=== PATIENT | female | born 1935 | race American Indian/Alaskan Native ===

== ENCOUNTER 2017-01-26 13:28 | Inpatient (IN) | payer MEDICARE ==
[2017-01-26 15:20] VITALS: BMI 27.8
--- NOTE | 2017-01-26 16:34 | CP.PCM.PN ---
Subjective - Date & Time of Evaluation Date of Evaluation: 01/26/17 Time of Evaluation: 16:32 - Subjective Subjective: CVA left Physiatry Overall Plan of Care - Overall Plan of Care Estimated Length of Stay in Weeks: 2 Rehab Impairment: Mobility, Gait, Balance, Coordination Etiologic Diagnosis: Cerebrovascular Accident Rehab/Medical Prognosis: Good - Anticipated Interventions Physical Therapy:: Yes Occupational Therapy:: Yes Speech Therapy:: No Recreational Therapy:: Yes - Therapy Goals Bed Mobility: Independent Ambulation: Independent Functional Positional Changes:: Independent - Discharge Plan Identification of Barriers to Discharge: Home Situation Discharge Destination: Home
--- NOTE | 2017-01-26 16:36 | CP.PCM.CON ---
History of Present Illness - History of Present Illness History of Present Illness: Dr Gonzalez PMR consultation on Maryann Kessler, born 1935, who has been admitted to [facility] for acute inpatient rehabilitation following an admission at [facility] with acute left CVA with impaired function and ambulation Review of Systems - Constitutional Constitutional: absent: Anorexia, Chills - EENT Eyes: absent: Blurred Vision Ears: absent: Decreased Hearing Nose/Mouth/Throat: absent: Nasal Congestion - Cardiovascular Cardiovascular: absent: Chest Pain - Respiratory Respiratory: absent: Cough, Dyspnea - Gastrointestinal Gastrointestinal: Constipation (this is her baseline though). absent: Bloating - Musculoskeletal Musculoskeletal: absent: Arthralgias, Back Pain - Integumentary Integumentary: absent: Bleeding Lesions - Neurological Neurological: absent: Abnormal Hearing, Abnormal Movements, Dizziness - Psychiatric Psychiatric: absent: Anxiety Past Patient History - Infectious Disease Hx of Infectious Diseases: None - Past Medical History & Family History Past Medical History?: Yes - Past Social History Smoking Status: Former Smoker - CARDIAC Hx Hypertension: Yes - ENDOCRINE/METABOLIC Hx Hypothyroidism: Yes - MUSCULOSKELETAL/RHEUMATOLOGICAL Hx Falls: No - PSYCHIATRIC Hx Substance Use: No - SURGICAL HISTORY Hx Cardiac Catheterization: Yes (stents) Hx Vascular Access Device: Yes Other/Comment: Removal of R kidney - ANESTHESIA Hx Anesthesia: Yes Hx Anesthesia Reactions: No Hx Malignant Hyperthermia: No Meds Allergies/Adverse Reactions: Allergies Allergy/AdvReac Type Severity Reaction Status Date / Time FISH Allergy Verified 01/24/17 10:28 Penicillins Allergy Verified 01/24/17 10:28 Physical Exam - Constitutional Appears: Well, Non-toxic, No Acute Distress - Head Exam Head Exam: ATRAUMATIC, NORMAL INSPECTION, NORMOCEPHALIC - Eye Exam Eye Exam: EOMI, Normal appearance - ENT Exam ENT Exam: Mucous Membranes Moist - Respiratory Exam Respiratory Exam: NORMAL BREATHING PATTERN - Cardiovascular Exam Cardiovascular Exam: REGULAR RHYTHM - GI/Abdominal Exam GI & Abdominal Exam: Normal Bowel Sounds. absent: Distended - Extremities Exam Extremities exam: Positive for: normal inspection. Negative for: calf tenderness, pedal edema (there is some mild toe skin cracking between the toes on the L>R) - Back Exam Back exam: NORMAL INSPECTION - Neurological Exam Neurological exam: Alert, CN II-XII Intact, Oriented x3 - Psychiatric Exam Psychiatric exam: Normal Affect, Normal Mood Assessment & Plan - Assessment and Plan (Free Text) Assessment: 81 left CVA decreased function PT/OT to continue to help increase functional independence Team conference for d/c planning Pain: controlled Vascular: no evidence of DVT GI: constipation but baseline Patient is an excellent acute rehabilitation candidate and will have focused PT , OT and recreational therapy to help facilitate a safe and appropriate d/c plan impairment code: 01.2
[2017-01-26] MEDS: Insulin Lispro (humaLOG) 100 Units/ml Inj SC SCH (21:05)
[2017-01-27] MEDS: Levothyroxine 25 MCG TAB PO SCH (06:26)
[2017-01-27] MEDS: Insulin Lispro (humaLOG) 100 Units/ml Inj SC SCH ×4 (06:44→21:18)
[2017-01-27 13:13] LABS: BASO # 0.1 K/uL (0.0-0.2); BASO % 0.8 % (0.0-2.0); EOS # 0.1 K/uL (0.0-0.7); LYMPH # 2.4 K/uL (1.0-4.3); LYMPH % 32.7 % (20.0-40.0); MEAN CELL VOLUME 94.4 fl (81.0-99.0); MEAN CORPUSCULAR HEMOGLOBIN 31.7 pg (27.0-31.0); MEAN CORPUSCULAR HGB CONC 33.5 g/dL (33.0-37.0); MEAN PLATELET VOLUME 8.6 fl (7.2-11.7); MONO # 0.6 K/uL (0.0-0.8); MONO % 8.7 % (0.0-10.0); NEUT % 55.8 % (50.0-75.0); NRBC % 0.1 % (0.0-0.0); RBC 4.43 Mil/uL (3.80-5.20); RED CELL DISTRIBUTION WIDTH 13.9 % (11.5-14.5); WHITE BLOOD COUNT 7.2 K/uL (4.8-10.8)
[2017-01-27 13:29] LABS: ALB/GLOB RATIO 1.4 (1.0-2.1); ALBUMIN 4.2 g/dL (3.5-5.0); ALT/SGPT 31 U/L (9-52); AST/SGOT 22 U/L (14-36); BLOOD UREA NITROGEN 15 mg/dl (7-17); CALCIUM 10.2 mg/dL (8.4-10.2); GFR AFRICAN-AMERICAN > 60; GFR NON-AFRICAN AMERICAN > 60
--- NOTE | 2017-01-27 15:05 | CON ---
DATE: 01/27/2017 CHIEF COMPLAINT: Status post ataxia, status post left brachium pontis, and left lateral aspect of superior cerebral peduncle infarct. HISTORY OF PRESENT ILLNESS: A 81-year-old woman with past medical history of hypertension, hyperthyroidism, type 2 diabetes mellitus, and dyslipidemia, who came in with difficulty walking at [facility] and ataxia and underwent a workup with MRI of the brain, was found to have an acute infarction in the medial aspect of the brachium pontis and the left aspect of the left superior cerebral peduncles which is deemed secondary to diffuse atherosclerosis. She is currently at [facility] for rehabilitation and for gait imbalance and muscle strengthening. She was on aspirin 81 and Plavix 75 mg, Crestor 5 mg for stroke prevention. Her blood pressures are stable. She no longer needs meclizine. PAST MEDICAL HISTORY: History of hypertension, dyslipidemia, hyperthyroidism, hyperlipidemia, coronary artery disease and stent. ALLERGIES: ALLERGIC TO FISH AND PENICILLIN. REVIEW OF SYSTEMS: A 14-point review of system is negative except per the HPI. MEDICATIONS: Reviewed by nurse reconciliation sheet. FAMILY HISTORY: Noncontributory. PHYSICAL EXAMINATION VITAL SIGNS: Temperature 97.7, pulse rate 60, blood pressure 139/67, respiratory rate 20, oxygen saturation 99% via room air. GENERAL: The patient is sitting up in bed, in no acute distress. HEENT: Atraumatic and normocephalic. PERRLA. Extraocular muscles intact. NECK: Supple. No JVD. No adenopathy noted. LUNGS: Clear to auscultation. No adventitious sounds. HEART: S1 and S2, normal rate and rhythm. No murmurs, rubs, or gallops. ABDOMEN: Soft, nontender, nondistended. Bowel sounds present. EXTREMITIES: No clubbing, no cyanosis. Peripheral pulses 2+ felt bilaterally. NEUROLOGIC: The patient is alert, oriented to person, place, month, and year. Speech is fluent without any errors. Cranial nerves II through XII intact. Motor exam: Moves all extremities equally. No pronator drift seen. Sensory exam: Light touch and proprioception is intact. Decreased vibration to the toes. DTRs are 2+ throughout and 1 at the ankles. Coordination, [id number] slightly on the left. Otherwise, rest is intact. Gait is deferred for now. LABORATORY DATA: Blood sugar today is 113. ASSESSMENT AND PLAN: This is a 81-year-old woman with past medical history of hypertension, hyperthyroidism, type 2 diabetes mellitus, dyslipidemia, who came in for difficulty in walking and ataxia at [facility], was found to have an acute infarction in the medial aspect of brachium pontis in the left aspect of the less superior cerebral peduncle which is secondary to diffuse atherosclerosis given her risk factors. She is currently at [facility] for rehabilitation and physical therapy. At this time, I recommend; 1. Aspirin 81 mg, Plavix 75 mg, and Crestor 5 mg for stroke prevention. 2. Physical and occupational therapy for gait imbalance and muscle strengthening for ataxia from the stroke. 3. Keep the blood pressure between 140-150 given her age. 4. Continue with the current present medical management. Thank you for this consult. She is neurological stable. Jose Alberto Guallpa MD
[2017-01-28] MEDS: Levothyroxine 25 MCG TAB PO SCH (06:45)
[2017-01-28] MEDS: Insulin Lispro (humaLOG) 100 Units/ml Inj SC SCH ×2 (06:54→12:11)
--- NOTE | 2017-01-28 14:03 | CP.PCM.HP ---
History of Present Illness - History of Present Illness History of Present Illness: This is a 81 y/o female with hx of HTN DM 2 hyperlipidemia and hypothyroidism is admitted for further phys therapy. She had a thrombotic CVA cerebellar. Patient has a lot of problems with gait and balance. She was admitted to [facility] and was transferred to rehab for further therapy. Patient has been on ASA and Plavix prior to CVA. Present on Admission - Present on Admission Any Indicators Present on Admission: No History of DVT/PE: No History of Uncontrolled Diabetes: Yes Urinary Catheter: No Decubitus Ulcer Present: No Past Patient History - Infectious Disease Hx of Infectious Diseases: None - Past Medical History & Family History Past Medical History?: Yes - Past Social History Smoking Status: Former Smoker - CARDIAC Hx Cardiac Disorders: Yes - ENDOCRINE/METABOLIC Hx Hypothyroidism: Yes - MUSCULOSKELETAL/RHEUMATOLOGICAL Hx Falls: No - PSYCHIATRIC Hx Substance Use: No - SURGICAL HISTORY Hx Cardiac Catheterization: Yes (stents) Hx Vascular Access Device: Yes Other/Comment: Removal of R kidney - ANESTHESIA Hx Anesthesia: Yes Hx Anesthesia Reactions: No Hx Malignant Hyperthermia: No Meds Allergies/Adverse Reactions: Allergies Allergy/AdvReac Type Severity Reaction Status Date / Time FISH Allergy Verified 01/24/17 10:28 Penicillins Allergy Verified 01/24/17 10:28 Physical Exam - Head Exam Head Exam: NORMAL INSPECTION - Eye Exam Eye Exam: Normal appearance - ENT Exam ENT Exam: Mucous Membranes Moist - Respiratory Exam Respiratory Exam: Clear to Auscultation Bilateral - Cardiovascular Exam Cardiovascular Exam: REGULAR RHYTHM - GI/Abdominal Exam GI & Abdominal Exam: Normal Bowel Sounds - Neurological Exam Neurological exam: CN II-XII Intact - Psychiatric Exam Psychiatric exam: Normal Mood - Skin Skin Exam: Dry Results - Vital Signs Recent Vital Signs: Last Vital Signs Temp 97.7 F 01/28/17 07:35 Pulse 57 L 01/28/17 07:35 Resp 18 01/28/17 07:35 BP 125/72 01/28/17 08:47 Pulse Ox 100 01/28/17 07:35 - Labs Result Diagrams: 01/27/17 13:00 01/27/17 13:00 Labs: Laboratory Results - last 24 hr 01/27/17 01/27/17 01/27/17 13:00 16:37 21:03 POC Glucose (mg/dL) 106 172 H TSH 3rd Generation 0.04 L 01/28/17 01/28/17 06:52 10:59 POC Glucose (mg/dL) 106 205 H TSH 3rd Generation Assessment & Plan (1) CVA (cerebral vascular accident) Status: Acute (2) Ataxia Status: Acute (3) Diabetes mellitus type 2 in nonobese Status: Acute (4) Hypertension Status: Acute - Assessment and Plan (Free Text) Plan: Cont meds cont tx cont PT monitor labs Physiatry
--- NOTE | 2017-01-28 14:05 | CP.PCM.PN ---
Subjective - Date & Time of Evaluation Date of Evaluation: 01/28/17 Time of Evaluation: 14:04 - Subjective Subjective: Patient is doing a lot better. Noted to have poor balance. Accuchecks are elevated. Objective - Vital Signs/Intake and Output Vital Signs (last 24 hours): Temp Pulse Resp BP Pulse Ox 97.7 F 57 L 18 125/72 100 01/28/17 07:35 01/28/17 07:35 01/28/17 07:35 01/28/17 08:47 01/28/17 07:35 - Medications Medications: Current Medications Aspirin (Aspirin Chewable) 81 mg PO DAILY [facility] Last Admin: 01/28/17 08:46 Dose: 81 mg Atorvastatin Calcium (Lipitor) 10 mg PO HS [facility] Last Admin: 01/27/17 21:17 Dose: 10 mg Clopidogrel Bisulfate (Plavix) 75 mg PO DAILY [facility] Last Admin: 01/28/17 08:46 Dose: 75 mg Famotidine (Pepcid) 20 mg PO DAILY [facility] Last Admin: 01/28/17 08:46 Dose: 20 mg Heparin Sodium (Porcine) (Heparin) 5,000 units SC Q12 [facility] PRN Reason: Protocol Last Admin: 01/28/17 09:17 Dose: 5,000 units Levothyroxine Sodium (Synthroid) 25 mcg PO DAILY@0630 [facility] Last Admin: 01/28/17 06:45 Dose: 25 mcg Losartan Potassium (Cozaar) 100 mg PO DAILY [facility] Last Admin: 01/28/17 08:47 Dose: 100 mg Metformin HCl (Glucophage) 500 mg PO 1130,1700 [facility] Sitagliptin Phosphate (Januvia) 100 mg PO DAILY [facility] - Labs Labs: 01/27/17 13:00 01/27/17 13:00 - Head Exam Head Exam: NORMAL INSPECTION - Eye Exam Eye Exam: Normal appearance - ENT Exam ENT Exam: Mucous Membranes Moist - Cardiovascular Exam Cardiovascular Exam: REGULAR RHYTHM - GI/Abdominal Exam GI & Abdominal Exam: Normal Bowel Sounds - Neurological Exam Neurological Exam: Awake, Oriented x3 - Psychiatric Exam Psychiatric exam: Normal Mood Assessment and Plan (1) CVA (cerebral vascular accident) Status: Acute (2) Diabetes mellitus type 2 in nonobese Status: Acute (3) Hypertension Status: Acute (4) Ataxia Status: Acute - Assessment and Plan (Free Text) Plan: cont meds cont tx cont PT follow up urine
[2017-01-29] MEDS: Levothyroxine 25 MCG TAB PO SCH (05:52)
[2017-01-29] MEDS: Tmp-Smz 800 mg-160 mg DS Tab PO SCH (21:12)
[2017-01-30] MEDS: Levothyroxine 25 MCG TAB PO SCH (06:30)
[2017-01-30] MEDS: Tmp-Smz 800 mg-160 mg DS Tab PO SCH ×2 (08:17→21:31)
--- NOTE | 2017-01-30 10:19 | CP.PCM.PN ---
Subjective - Date & Time of Evaluation Date of Evaluation: 01/29/17 Time of Evaluation: 10:00 - Subjective Subjective: patient remains stable Noted better accucheck Has no headaches No dizziness. Doing well with PT. Objective - Vital Signs/Intake and Output Vital Signs (last 24 hours): Temp Pulse Resp BP Pulse Ox 97.3 F L 66 20 129/62 99 01/30/17 07:36 01/30/17 08:26 01/30/17 07:36 01/30/17 08:26 01/30/17 07:36 - Medications Medications: Current Medications Aspirin (Aspirin Chewable) 81 mg PO DAILY [facility] Last Admin: 01/30/17 08:16 Dose: 81 mg Atorvastatin Calcium (Lipitor) 10 mg PO HS [facility] Last Admin: 01/29/17 21:12 Dose: 10 mg Clopidogrel Bisulfate (Plavix) 75 mg PO DAILY [facility] Last Admin: 01/30/17 08:18 Dose: 75 mg Famotidine (Pepcid) 20 mg PO DAILY [facility] Last Admin: 01/30/17 08:18 Dose: 20 mg Levothyroxine Sodium (Synthroid) 25 mcg PO DAILY@0630 [facility] Last Admin: 01/30/17 06:30 Dose: 25 mcg Losartan Potassium (Cozaar) 100 mg PO DAILY [facility] Last Admin: 01/30/17 08:17 Dose: 100 mg Metformin HCl (Glucophage) 500 mg PO 1130,1700 [facility] Last Admin: 01/29/17 16:33 Dose: 500 mg Sitagliptin Phosphate (Januvia) 50 mg PO DAILY [facility] Trimethoprim/Sulfamethoxazole (Bactrim Ds Tab) 1 tab PO Q12 [facility] Last Admin: 01/30/17 08:17 Dose: 1 tab - Labs Labs: 01/27/17 13:00 01/27/17 13:00 - Head Exam Head Exam: NORMAL INSPECTION - Eye Exam Eye Exam: Normal appearance - ENT Exam ENT Exam: Mucous Membranes Moist - Respiratory Exam Respiratory Exam: Clear to Ausculation Bilateral - Cardiovascular Exam Cardiovascular Exam: REGULAR RHYTHM - GI/Abdominal Exam GI & Abdominal Exam: Normal Bowel Sounds - Neurological Exam Neurological Exam: Awake, Oriented x3 Assessment and Plan (1) CVA (cerebral vascular accident) Status: Acute (2) Diabetes mellitus type 2 in nonobese Status: Acute (3) Hypertension Status: Acute - Assessment and Plan (Free Text) Plan: cont meds cont tx cont meds folow up urine C and S
--- NOTE | 2017-01-30 10:35 | CP.PCM.PN ---
Subjective - Date & Time of Evaluation Date of Evaluation: 01/30/17 Time of Evaluation: 10:32 - Subjective Subjective: Patient has slight dizziness Has no chest pain or SOB afebrile Noted E coli in urine positive ESBL sens to gentamicin. Patient is allergic to PCN. Objective - Vital Signs/Intake and Output Vital Signs (last 24 hours): Temp Pulse Resp BP Pulse Ox 97.3 F L 66 20 129/62 99 01/30/17 07:36 01/30/17 08:26 01/30/17 07:36 01/30/17 08:26 01/30/17 07:36 - Medications Medications: Current Medications Aspirin (Aspirin Chewable) 81 mg PO DAILY [facility] Last Admin: 01/30/17 08:16 Dose: 81 mg Atorvastatin Calcium (Lipitor) 10 mg PO HS [facility] Last Admin: 01/29/17 21:12 Dose: 10 mg Clopidogrel Bisulfate (Plavix) 75 mg PO DAILY [facility] Last Admin: 01/30/17 08:18 Dose: 75 mg Famotidine (Pepcid) 20 mg PO DAILY [facility] Last Admin: 01/30/17 08:18 Dose: 20 mg Gentamicin Sulfate/Sodium Chloride (Gentamicin 80mg/50ml Ns) 80 mg in 50 mls @ 50 mls/hr IVPB Q8 [facility] Levothyroxine Sodium (Synthroid) 25 mcg PO DAILY@0630 [facility] Last Admin: 01/30/17 06:30 Dose: 25 mcg Losartan Potassium (Cozaar) 100 mg PO DAILY [facility] Last Admin: 01/30/17 08:17 Dose: 100 mg Metformin HCl (Glucophage) 500 mg PO 1130,1700 [facility] Last Admin: 01/29/17 16:33 Dose: 500 mg Sitagliptin Phosphate (Januvia) 50 mg PO DAILY [facility] Trimethoprim/Sulfamethoxazole (Bactrim Ds Tab) 1 tab PO Q12 [facility] Last Admin: 01/30/17 08:17 Dose: 1 tab - Labs Labs: 01/27/17 13:00 01/27/17 13:00 - Head Exam Head Exam: NORMAL INSPECTION - Eye Exam Eye Exam: Normal appearance - ENT Exam ENT Exam: Mucous Membranes Moist - Respiratory Exam Respiratory Exam: Clear to Ausculation Bilateral - Cardiovascular Exam Cardiovascular Exam: REGULAR RHYTHM - GI/Abdominal Exam GI & Abdominal Exam: Normal Bowel Sounds - Neurological Exam Neurological Exam: Awake, Oriented x3 - Psychiatric Exam Psychiatric exam: Normal Mood Assessment and Plan (1) CVA (cerebral vascular accident) Status: Acute (2) Diabetes mellitus type 2 in nonobese Status: Acute (3) Hypertension Status: Acute (4) Ataxia Status: Acute (5) Urinary tract infection Status: Acute (6) Infection due to ESBL-producing Escherichia coli Status: Acute - Assessment and Plan (Free Text) Plan: contmed start Gentamicin at 3 to 4 mg /kg in 3 div dose. cont PT. cannot give imipemem due to allergy to PCN
--- NOTE | 2017-01-30 13:27 | PSY.TMCNF ---
Nursing - Vital Signs Vital Signs (Last 8 hours): Vital Signs 01/30/17 01/30/17 01/30/17 07:36 08:17 08:26 Temperature 97.3 F L Pulse Rate 66 66 66 Respiratory 20 Rate Blood Pressure 126/58 L 129/62 129/62 O2 Sat by Pulse 99 Oximetry Pain: 0 - Medications/Other Issues Comment: Pt at moderate nutritional risk. goals:1. Consume 75-100% at mealtimes (met, continue). 2. Maintain good glycemic control:GLU:70-180mg/dl ( partially met, continue). Follow0-up due on 02/05/2017 - Bladder Management Bladder Pattern: Normal Voiding Method: Toilet, Bedpan - Bowel Management Bowel Pattern: Normal - Goals/Time Frame Comments: Pt was seen awake and alert sitting in her wheelchair in her room. Pt agreeable to participate in evaluation session and was able to identify her leisure interests such as completing word finds, watching television, and reading. 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 Pt promised, "It is time to think about myself first." Pt's mood was stable-positive and seen wearing glasses during session. Pt was going to read newspapert and complete word search during her free time. Physical Therapy - Bed Mobility Bed Mobility: Supervision, Verbal Cues, Contact Guard - Transfers Wheelchair to Mat: Verbal Cues, Minimal Assistance Sit to Stand: Verbal Cues, Minimal Assistance Comment: RW - Ambulation Level of Assistance: Verbal Cues, Minimal Assistance Assistive Devices: Rolling Walker Orthoses: n/a Comment: -level surface, RW. -VCs for sequencing and to improve foot positioning inside walker. -ataxic gait with impaired midline orientation and impaired balance reactions - Stair Negotiation Stairs: Level of Assistance: Not Tested - Standing Balance Static Stand: Contact Guard Assist Dynamic Stand: Minimal Assistance, Moderate Assistance - Pain Pain (assessed during therapy session): 0 - Insight/Carryover Insight/Carryover: Fair - Patient/Family Education Comment: -safety, therapy schedule, POC, therapy goals, midline orientation, WC mobility, use of DME, stroke recovery - Assessment/Plan Assessment: Ms. Kessler continues to demonstrate significant postural control and midline orientation deficits. These deficits impair her mobility. Pt requires min to mod A to maintain postural control and min A for safety with all mobility with use of a RW. Pt does well with visual and tactile feedback to improve postural control. PT recommends discharge to [facility] as patients deficits are likely to require increased time in order for patient to return to safe level of modified independence functioning for return to independent living. - Goals Timeframe: 7 days Goals: Ambulate 100 feet with RW with CS. Transfer with RW with CS. Bed/mat mobility with CS for supine to/from sit. Rolling with mod I - Provider Therapist: Angy Ware PT, DPT License Number: [id number] Occupational Therapy - Arousal/Attention/Orientation Patient Orientation: Person, Place, Time - ADL/IADL Self Feeding: Supervision, Set-up Help Grooming: Independent Dressing-Upper Extremity: Supervision, Set-up Help Dressing-Lower Extremity: Set-up Help, Contact Guard - Sitting Balance Static Sitting: Independent with upper extremity support Dynamic Sitting: Reaches out of base of support, Requires supervision - Transfers Wheelchair to Bed Transfers: Minimal Assistance Toilet Transfers: Moderate Assistance - Upper Extremity Status Right Upper Extremity Comment: ROM WFL MMT 4/5 Left Upper Extremity Comment: ROM WFL MMT 4/5, Impaired coordination - Pain Pain (assessed during therapy session): 0 - Insight/Carryover Insight/Carryover: Fair - Patient/Family Education Comment: -safety, therapy schedule, POC, therapy goals, midline orientation, WC mobility, use of DME, stroke recovery - Assessment/Plan Assessment: Ms. Kessler continues to demonstrate significant postural control and midline orientation deficits. These deficits impair her mobility. Pt requires min to mod A to maintain postural control and min A for safety with all mobility with use of a RW. Pt does well with visual and tactile feedback to improve postural control. PT recommends discharge to [facility] as patients deficits are likely to require increased time in order for patient to return to safe level of modified independence functioning for return to independent living. - Goals Timeframe: 7 days Goals: Ambulate 100 feet with RW with CS. Transfer with RW with CS. Bed/mat mobility with CS for supine to/from sit. Rolling with mod I - Provider Therapist: Cordelia Hood License Number: [id number] Speech Therapy - Plan Assessment: Ms. Kessler continues to demonstrate significant postural control and midline orientation deficits. These deficits impair her mobility. Pt requires min to mod A to maintain postural control and min A for safety with all mobility with use of a RW. Pt does well with visual and tactile feedback to improve postural control. PT recommends discharge to [facility] as patients deficits are likely to require increased time in order for patient to return to safe level of modified independence functioning for return to independent living. Recreational Therapy - Participation Participation: Participates in Individual and/or Group Sessions - Attendance Attendance: 3-5 times per week - Activities Leisure Activities: Reading - Socialization Level of Socialization: Initiates/interacts freely with care givers and peer - Diversional Time Diversional Time: reading, word searches - Assessment Assessment/Plan: Ms. Kessler continues to demonstrate significant postural control and midline orientation deficits. These deficits impair her mobility. Pt requires min to mod A to maintain postural control and min A for safety with all mobility with use of a RW. Pt does well with visual and tactile feedback to improve postural control. PT recommends discharge to [facility] as patients deficits are likely to require increased time in order for patient to return to safe level of modified independence functioning for return to independent living. - Provider Therapist: Natalie Spivey, MANAGER [employer] #[id number] Nutrition - Current Diet Current Diet/ Supplement/ Feedings: Moderate consistent CHO heart healthy - Appetite Percent Meal Consumed: 50-74% - Assessment/Goals/Time Frame Assessment/Goals/Time Frame: Pt at moderate nutritional risk. goals:1. Consume 75-100% at mealtimes (met, continue). 2. Maintain good glycemic control:GLU:70- 180mg/dl (partially met, continue). Follow0-up due on 02/05/2017 - Provider Provider: Mary Allen RD Case Management - Discharge Plan Discharge Plan: Home alone Rehabilitation Plan - Treatment Plan Treatment Plan: Physical Therapy, Occupational Therapy, Dietary, Patient/Family Education - Discharge Plan Estimated Date of Discharge: 02/09/17 Discharge to: Home
[2017-01-30] MEDS: Gentamicin 80mg/50ml NS 80 MG/50 ML BAG IVPB SCH ×2 (13:50→21:32)
--- NOTE | 2017-01-30 16:18 | CP.PCM.PN ---
Subjective - Date & Time of Evaluation Date of Evaluation: 01/30/17 Time of Evaluation: 16:18 - Subjective Subjective: Patient seen in the room in good spirits denies pain she notes that she can be anxious in therapies and gets a little dizzy at times I gave her some strategies to help cope with both issues and she was appreciative. continue current care Objective - Vital Signs/Intake and Output Vital Signs (last 24 hours): Temp Pulse Resp BP Pulse Ox 97.3 F L 66 20 129/62 99 01/30/17 07:36 01/30/17 08:26 01/30/17 07:36 01/30/17 08:26 01/30/17 07:36 - Medications Medications: Current Medications Aspirin (Aspirin Chewable) 81 mg PO DAILY [facility] Last Admin: 01/30/17 08:16 Dose: 81 mg Atorvastatin Calcium (Lipitor) 10 mg PO HS [facility] Last Admin: 01/29/17 21:12 Dose: 10 mg Clopidogrel Bisulfate (Plavix) 75 mg PO DAILY [facility] Last Admin: 01/30/17 08:18 Dose: 75 mg Famotidine (Pepcid) 20 mg PO DAILY [facility] Last Admin: 01/30/17 08:18 Dose: 20 mg Gentamicin Sulfate/Sodium Chloride (Gentamicin 80mg/50ml Ns) 80 mg in 50 mls @ 50 mls/hr IVPB Q8 [facility] Last Admin: 01/30/17 13:50 Dose: 50 mls/hr Levothyroxine Sodium (Synthroid) 25 mcg PO DAILY@0630 [facility] Last Admin: 01/30/17 06:30 Dose: 25 mcg Losartan Potassium (Cozaar) 100 mg PO DAILY [facility] Last Admin: 01/30/17 08:17 Dose: 100 mg Metformin HCl (Glucophage) 500 mg PO 1130,1700 [facility] Last Admin: 01/30/17 12:03 Dose: 500 mg Sitagliptin Phosphate (Januvia) 50 mg PO DAILY [facility] Trimethoprim/Sulfamethoxazole (Bactrim Ds Tab) 1 tab PO Q12 [facility] Last Admin: 01/30/17 08:17 Dose: 1 tab - Labs Labs: 01/27/17 13:00 01/27/17 13:00
[2017-01-31] MEDS: Gentamicin 80mg/50ml NS 80 MG/50 ML BAG IVPB SCH ×3 (05:12→21:54)
[2017-01-31] MEDS: Levothyroxine 25 MCG TAB PO SCH (05:55)
[2017-01-31] MEDS: Tmp-Smz 800 mg-160 mg DS Tab PO SCH ×2 (08:57→21:15)
--- NOTE | 2017-01-31 12:39 | CP.PCM.PN ---
Subjective - Date & Time of Evaluation Date of Evaluation: 01/31/17 Time of Evaluation: 12:38 - Subjective Subjective: Patient seen in room on IV ABX for UTI denies any symptoms at this point enjoying therapy and notes benefit denies pain continue current care Objective - Vital Signs/Intake and Output Vital Signs (last 24 hours): Temp Pulse Resp BP Pulse Ox 97.7 F 60 20 108/60 99 01/31/17 07:32 01/31/17 08:58 01/31/17 07:32 01/31/17 08:58 01/31/17 07:32 - Medications Medications: Current Medications Aspirin (Aspirin Chewable) 81 mg PO DAILY [facility] Last Admin: 01/31/17 08:56 Dose: 81 mg Atorvastatin Calcium (Lipitor) 10 mg PO HS [facility] Last Admin: 01/30/17 21:31 Dose: 10 mg Clopidogrel Bisulfate (Plavix) 75 mg PO DAILY [facility] Last Admin: 01/31/17 08:58 Dose: 75 mg Famotidine (Pepcid) 20 mg PO DAILY [facility] Last Admin: 01/31/17 08:58 Dose: 20 mg Gentamicin Sulfate/Sodium Chloride (Gentamicin 80mg/50ml Ns) 80 mg in 50 mls @ 50 mls/hr IVPB Q8 [facility] Last Admin: 01/31/17 05:12 Dose: 50 mls/hr Levothyroxine Sodium (Synthroid) 25 mcg PO DAILY@0630 [facility] Last Admin: 01/31/17 05:55 Dose: 25 mcg Losartan Potassium (Cozaar) 100 mg PO DAILY [facility] Last Admin: 01/31/17 08:58 Dose: Not Given Metformin HCl (Glucophage) 500 mg PO 1130,1700 [facility] Last Admin: 01/31/17 11:59 Dose: 500 mg Sitagliptin Phosphate (Januvia) 50 mg PO DAILY [facility] Last Admin: 01/31/17 08:58 Dose: 50 mg Trimethoprim/Sulfamethoxazole (Bactrim Ds Tab) 1 tab PO Q12 [facility] Last Admin: 01/31/17 08:57 Dose: 1 tab - Labs Labs: 01/27/17 13:00 01/27/17 13:00
[2017-02-01] MEDS: Gentamicin 80mg/50ml NS 80 MG/50 ML BAG IVPB SCH ×3 (05:29→21:30)
[2017-02-01] MEDS: Levothyroxine 25 MCG TAB PO SCH (05:52)
[2017-02-01] MEDS: Tmp-Smz 800 mg-160 mg DS Tab PO SCH ×2 (08:16→21:18)
--- NOTE | 2017-02-01 17:55 | CP.PCM.PN ---
Subjective - Date & Time of Evaluation Date of Evaluation: 02/01/17 Time of Evaluation: 17:54 - Subjective Subjective: Patient seen in room doing very well did great in therapy with a very nice improvement in gait now 400' with improved balance continue current care Objective - Vital Signs/Intake and Output Vital Signs (last 24 hours): Temp Pulse Resp BP Pulse Ox 96.9 F L 64 21 118/67 98 02/01/17 08:16 02/01/17 08:16 02/01/17 08:16 02/01/17 08:16 02/01/17 08:16 - Medications Medications: Current Medications Acetaminophen (Tylenol 325mg Tab) 650 mg PO Q4 PRN PRN Reason: FOR PAIN SCALE 4-10 Aspirin (Aspirin Chewable) 81 mg PO DAILY [facility] Last Admin: 02/01/17 08:16 Dose: 81 mg Atorvastatin Calcium (Lipitor) 10 mg PO HS [facility] Last Admin: 01/31/17 21:15 Dose: 10 mg Clopidogrel Bisulfate (Plavix) 75 mg PO DAILY [facility] Last Admin: 02/01/17 08:17 Dose: 75 mg Clotrimazole (Lotrimin 1% Cream) 1 applic TOP BID [facility] Last Admin: 02/01/17 16:57 Dose: 1 % Famotidine (Pepcid) 20 mg PO DAILY [facility] Last Admin: 02/01/17 08:17 Dose: 20 mg Home Med (Patient's Own Medication) 1 unit TOP TID PRN PRN Reason: Itching / Pruritus Gentamicin Sulfate/Sodium Chloride (Gentamicin 80mg/50ml Ns) 80 mg in 50 mls @ 50 mls/hr IVPB Q8 [facility] Last Admin: 02/01/17 13:57 Dose: 50 mls/hr Levothyroxine Sodium (Synthroid) 25 mcg PO DAILY@0630 [facility] Last Admin: 02/01/17 05:52 Dose: 25 mcg Losartan Potassium (Cozaar) 100 mg PO DAILY [facility] Last Admin: 02/01/17 08:16 Dose: Not Given Metformin HCl (Glucophage) 500 mg PO 1130,1700 [facility] Last Admin: 02/01/17 16:57 Dose: 500 mg Sitagliptin Phosphate (Januvia) 50 mg PO DAILY [facility] Last Admin: 02/01/17 08:17 Dose: 50 mg Trimethoprim/Sulfamethoxazole (Bactrim Ds Tab) 1 tab PO Q12 [facility] Last Admin: 02/01/17 08:16 Dose: 1 tab - Labs Labs: 01/27/17 13:00 01/27/17 13:00
[2017-02-01] MEDS: TOLNAFTATE TOP PRN ×2 (17:57→22:34)
[2017-02-02] MEDS: Gentamicin 80mg/50ml NS 80 MG/50 ML BAG IVPB SCH ×3 (05:40→21:36)
[2017-02-02] MEDS: Levothyroxine 25 MCG TAB PO SCH (05:54)
[2017-02-02] MEDS: TOLNAFTATE TOP PRN (07:34)
[2017-02-02] MEDS: Tmp-Smz 800 mg-160 mg DS Tab PO SCH ×2 (09:19→21:34)
[2017-02-02] MEDS ORDERED: Alum-Mag Hydrox-Simethicone Susp (30 mL) PO ONE (22:10)
[2017-02-03] MEDS: Gentamicin 80mg/50ml NS 80 MG/50 ML BAG IVPB SCH ×3 (06:07→21:02)
[2017-02-03] MEDS: Levothyroxine 25 MCG TAB PO SCH (06:08)
[2017-02-03] MEDS: Tmp-Smz 800 mg-160 mg DS Tab PO SCH ×2 (09:06→20:49)
[2017-02-03 14:08] LABS: SQUAMOUS EPITHIAL 1 /hpf (0-5); URINE BILIRUBIN NEGATIVE (NEGATIVE); URINE BLOOD NEGATIVE (NEGATIVE); URINE CLARITY SLIGHTY-CLOUDY (Clear); URINE COLOR YELLOW (YELLOW); URINE GLUCOSE (UA) NEG (Normal); URINE LEUKOCYTE ESTERASE NEG Leu/uL (Negative); URINE NITRATE NEGATIVE (NEGATIVE); URINE PROTEIN NEGATIVE (NEGATIVE); URINE UROBILINOGEN 0.2-1.0 mg/dL (0.2-1.0)
[2017-02-04] MEDS: Gentamicin 80mg/50ml NS 80 MG/50 ML BAG IVPB SCH (06:34)
[2017-02-04] MEDS: Levothyroxine 25 MCG TAB PO SCH (06:34)
[2017-02-04] MEDS: Tmp-Smz 800 mg-160 mg DS Tab PO SCH ×2 (09:26→20:34)
--- NOTE | 2017-02-04 10:42 | CP.PCM.PN ---
Subjective - Date & Time of Evaluation Date of Evaluation: 01/31/17 Time of Evaluation: 10:00 - Subjective Subjective: Patient has josé luis doing well with PT Noted significant problems with balance even with use of walker. Has no dizziness. Objective - Vital Signs/Intake and Output Vital Signs (last 24 hours): Temp Pulse Resp BP Pulse Ox 97.7 F 66 20 110/56 L 97 02/03/17 20:31 02/04/17 09:26 02/03/17 20:31 02/04/17 09:26 02/03/17 20:31 - Medications Medications: Current Medications Acetaminophen (Tylenol 325mg Tab) 650 mg PO Q4 PRN PRN Reason: FOR PAIN SCALE 4-10 Aspirin (Aspirin Chewable) 81 mg PO DAILY [facility] Last Admin: 02/04/17 09:26 Dose: 81 mg Atorvastatin Calcium (Lipitor) 10 mg PO HS [facility] Last Admin: 02/03/17 21:02 Dose: 10 mg Clopidogrel Bisulfate (Plavix) 75 mg PO DAILY [facility] Last Admin: 02/04/17 09:27 Dose: 75 mg Clotrimazole (Lotrimin 1% Cream) 1 applic TOP BID [facility] Last Admin: 02/04/17 09:26 Dose: 1 applic Clotrimazole (Lotrimin 1% Vaginal) 1 applic VG HS [facility] Last Admin: 02/03/17 21:10 Dose: Not Given Famotidine (Pepcid) 20 mg PO DAILY [facility] Last Admin: 02/04/17 09:27 Dose: 20 mg Home Med (Patient's Own Medication) 1 unit TOP TID PRN PRN Reason: Itching / Pruritus Last Admin: 02/02/17 07:34 Dose: 1 unit Gentamicin Sulfate/Sodium Chloride (Gentamicin 80mg/50ml Ns) 80 mg in 50 mls @ 50 mls/hr IVPB Q8 [facility] Last Admin: 02/04/17 06:34 Dose: 50 mls/hr Levothyroxine Sodium (Synthroid) 25 mcg PO DAILY@0630 [facility] Last Admin: 02/04/17 06:34 Dose: 25 mcg Losartan Potassium (Cozaar) 100 mg PO DAILY [facility] Last Admin: 02/04/17 09:26 Dose: Not Given Metformin HCl (Glucophage) 500 mg PO 1130,1700 [facility] Last Admin: 02/03/17 18:35 Dose: 500 mg Sitagliptin Phosphate (Januvia) 50 mg PO DAILY [facility] Last Admin: 02/04/17 09:26 Dose: 50 mg Trimethoprim/Sulfamethoxazole (Bactrim Ds Tab) 1 tab PO Q12 [facility] Stop: 02/04/17 21:00 Last Admin: 02/04/17 09:26 Dose: 1 tab - Labs Labs: 01/27/17 13:00 01/27/17 13:00 - Head Exam Head Exam: NORMAL INSPECTION - Eye Exam Eye Exam: Normal appearance - ENT Exam ENT Exam: Mucous Membranes Moist - Respiratory Exam Respiratory Exam: Clear to Ausculation Bilateral - Cardiovascular Exam Cardiovascular Exam: REGULAR RHYTHM - GI/Abdominal Exam GI & Abdominal Exam: Normal Bowel Sounds Assessment and Plan (1) CVA (cerebral vascular accident) Status: Acute (2) Diabetes mellitus type 2 in nonobese Status: Acute (3) Hypertension Status: Acute (4) Ataxia Status: Acute (5) Gait disturbance, post-stroke Status: Acute (6) Hyperlipidemia Status: Acute (7) Hypothyroidism Status: Acute - Assessment and Plan (Free Text) Plan: Cont meds Cont tx Cont pT contmeds.
--- NOTE | 2017-02-04 10:45 | CP.PCM.PN ---
Subjective - Date & Time of Evaluation Date of Evaluation: 02/01/17 Time of Evaluation: 09:30 - Subjective Subjective: Patient is stable Has no chest pain or SOB Afebrile Objective - Vital Signs/Intake and Output Vital Signs (last 24 hours): Temp Pulse Resp BP Pulse Ox 97.7 F 66 20 110/56 L 97 02/03/17 20:31 02/04/17 09:26 02/03/17 20:31 02/04/17 09:26 02/03/17 20:31 - Medications Medications: Current Medications Acetaminophen (Tylenol 325mg Tab) 650 mg PO Q4 PRN PRN Reason: FOR PAIN SCALE 4-10 Aspirin (Aspirin Chewable) 81 mg PO DAILY [facility] Last Admin: 02/04/17 09:26 Dose: 81 mg Atorvastatin Calcium (Lipitor) 10 mg PO HS [facility] Last Admin: 02/03/17 21:02 Dose: 10 mg Clopidogrel Bisulfate (Plavix) 75 mg PO DAILY [facility] Last Admin: 02/04/17 09:27 Dose: 75 mg Clotrimazole (Lotrimin 1% Cream) 1 applic TOP BID [facility] Last Admin: 02/04/17 09:26 Dose: 1 applic Clotrimazole (Lotrimin 1% Vaginal) 1 applic VG HS [facility] Last Admin: 02/03/17 21:10 Dose: Not Given Famotidine (Pepcid) 20 mg PO DAILY [facility] Last Admin: 02/04/17 09:27 Dose: 20 mg Home Med (Patient's Own Medication) 1 unit TOP TID PRN PRN Reason: Itching / Pruritus Last Admin: 02/02/17 07:34 Dose: 1 unit Gentamicin Sulfate/Sodium Chloride (Gentamicin 80mg/50ml Ns) 80 mg in 50 mls @ 50 mls/hr IVPB Q8 [facility] Last Admin: 02/04/17 06:34 Dose: 50 mls/hr Levothyroxine Sodium (Synthroid) 25 mcg PO DAILY@0630 [facility] Last Admin: 02/04/17 06:34 Dose: 25 mcg Losartan Potassium (Cozaar) 100 mg PO DAILY [facility] Last Admin: 02/04/17 09:26 Dose: Not Given Metformin HCl (Glucophage) 500 mg PO 1130,1700 [facility] Last Admin: 02/03/17 18:35 Dose: 500 mg Sitagliptin Phosphate (Januvia) 50 mg PO DAILY [facility] Last Admin: 02/04/17 09:26 Dose: 50 mg Trimethoprim/Sulfamethoxazole (Bactrim Ds Tab) 1 tab PO Q12 [facility] Stop: 02/04/17 21:00 Last Admin: 02/04/17 09:26 Dose: 1 tab - Labs Labs: 01/27/17 13:00 01/27/17 13:00 - Head Exam Head Exam: NORMAL INSPECTION - Eye Exam Eye Exam: Normal appearance - ENT Exam ENT Exam: Mucous Membranes Moist - Respiratory Exam Respiratory Exam: Clear to Ausculation Bilateral - Cardiovascular Exam Cardiovascular Exam: REGULAR RHYTHM - GI/Abdominal Exam GI & Abdominal Exam: Normal Bowel Sounds - Neurological Exam Neurological Exam: Awake, Oriented x3 Assessment and Plan (1) CVA (cerebral vascular accident) Status: Acute (2) Diabetes mellitus type 2 in nonobese Status: Acute (3) Hypertension Status: Acute (4) Ataxia Status: Acute (5) Gait disturbance, post-stroke Status: Acute (6) Hyperlipidemia Status: Acute (7) Hypothyroidism Status: Acute - Assessment and Plan (Free Text) Plan: Cnt meds Cont tx Cont PT
--- NOTE | 2017-02-04 10:46 | CP.PCM.PN ---
Subjective - Date & Time of Evaluation Date of Evaluation: 02/02/17 Time of Evaluation: 09:45 - Subjective Subjective: Patient is dong well with PT Still has a lot of balance problems and gait dysfunction Noted good glucose control. Has no fever no chest pain or SOB. Objective - Vital Signs/Intake and Output Vital Signs (last 24 hours): Temp Pulse Resp BP Pulse Ox 97.7 F 66 20 110/56 L 97 02/03/17 20:31 02/04/17 09:26 02/03/17 20:31 02/04/17 09:26 02/03/17 20:31 - Medications Medications: Current Medications Acetaminophen (Tylenol 325mg Tab) 650 mg PO Q4 PRN PRN Reason: FOR PAIN SCALE 4-10 Aspirin (Aspirin Chewable) 81 mg PO DAILY [facility] Last Admin: 02/04/17 09:26 Dose: 81 mg Atorvastatin Calcium (Lipitor) 10 mg PO HS [facility] Last Admin: 02/03/17 21:02 Dose: 10 mg Clopidogrel Bisulfate (Plavix) 75 mg PO DAILY [facility] Last Admin: 02/04/17 09:27 Dose: 75 mg Clotrimazole (Lotrimin 1% Cream) 1 applic TOP BID [facility] Last Admin: 02/04/17 09:26 Dose: 1 applic Clotrimazole (Lotrimin 1% Vaginal) 1 applic VG HS [facility] Last Admin: 02/03/17 21:10 Dose: Not Given Famotidine (Pepcid) 20 mg PO DAILY [facility] Last Admin: 02/04/17 09:27 Dose: 20 mg Home Med (Patient's Own Medication) 1 unit TOP TID PRN PRN Reason: Itching / Pruritus Last Admin: 02/02/17 07:34 Dose: 1 unit Gentamicin Sulfate/Sodium Chloride (Gentamicin 80mg/50ml Ns) 80 mg in 50 mls @ 50 mls/hr IVPB Q8 [facility] Last Admin: 02/04/17 06:34 Dose: 50 mls/hr Levothyroxine Sodium (Synthroid) 25 mcg PO DAILY@0630 [facility] Last Admin: 02/04/17 06:34 Dose: 25 mcg Losartan Potassium (Cozaar) 100 mg PO DAILY [facility] Last Admin: 02/04/17 09:26 Dose: Not Given Metformin HCl (Glucophage) 500 mg PO 1130,1700 [facility] Last Admin: 02/03/17 18:35 Dose: 500 mg Sitagliptin Phosphate (Januvia) 50 mg PO DAILY [facility] Last Admin: 02/04/17 09:26 Dose: 50 mg Trimethoprim/Sulfamethoxazole (Bactrim Ds Tab) 1 tab PO Q12 [facility] Stop: 02/04/17 21:00 Last Admin: 02/04/17 09:26 Dose: 1 tab - Labs Labs: 01/27/17 13:00 01/27/17 13:00 - Head Exam Head Exam: NORMAL INSPECTION - Eye Exam Eye Exam: Normal appearance - ENT Exam ENT Exam: Mucous Membranes Moist - Cardiovascular Exam Cardiovascular Exam: REGULAR RHYTHM - GI/Abdominal Exam GI & Abdominal Exam: Normal Bowel Sounds Assessment and Plan (1) CVA (cerebral vascular accident) Status: Acute (2) Diabetes mellitus type 2 in nonobese Status: Acute (3) Hypertension Status: Acute (4) Ataxia Status: Acute (5) Gait disturbance, post-stroke Status: Acute (6) Hyperlipidemia Status: Acute (7) Hypothyroidism Status: Acute - Assessment and Plan (Free Text) Plan: cont meds Cont tx Cont PT.
--- NOTE | 2017-02-04 10:48 | CP.PCM.PN ---
Subjective - Date & Time of Evaluation Date of Evaluation: 02/03/17 Time of Evaluation: 10:00 - Subjective Subjective: Patient is doing well Has no chest pain or SOB Objective - Vital Signs/Intake and Output Vital Signs (last 24 hours): Temp Pulse Resp BP Pulse Ox 97.7 F 66 20 110/56 L 97 02/03/17 20:31 02/04/17 09:26 02/03/17 20:31 02/04/17 09:26 02/03/17 20:31 - Medications Medications: Current Medications Acetaminophen (Tylenol 325mg Tab) 650 mg PO Q4 PRN PRN Reason: FOR PAIN SCALE 4-10 Aspirin (Aspirin Chewable) 81 mg PO DAILY [facility] Last Admin: 02/04/17 09:26 Dose: 81 mg Atorvastatin Calcium (Lipitor) 10 mg PO HS [facility] Last Admin: 02/03/17 21:02 Dose: 10 mg Clopidogrel Bisulfate (Plavix) 75 mg PO DAILY [facility] Last Admin: 02/04/17 09:27 Dose: 75 mg Clotrimazole (Lotrimin 1% Cream) 1 applic TOP BID [facility] Last Admin: 02/04/17 09:26 Dose: 1 applic Clotrimazole (Lotrimin 1% Vaginal) 1 applic VG HS [facility] Last Admin: 02/03/17 21:10 Dose: Not Given Famotidine (Pepcid) 20 mg PO DAILY [facility] Last Admin: 02/04/17 09:27 Dose: 20 mg Home Med (Patient's Own Medication) 1 unit TOP TID PRN PRN Reason: Itching / Pruritus Last Admin: 02/02/17 07:34 Dose: 1 unit Gentamicin Sulfate/Sodium Chloride (Gentamicin 80mg/50ml Ns) 80 mg in 50 mls @ 50 mls/hr IVPB Q8 [facility] Last Admin: 02/04/17 06:34 Dose: 50 mls/hr Levothyroxine Sodium (Synthroid) 25 mcg PO DAILY@0630 [facility] Last Admin: 02/04/17 06:34 Dose: 25 mcg Losartan Potassium (Cozaar) 100 mg PO DAILY [facility] Last Admin: 02/04/17 09:26 Dose: Not Given Metformin HCl (Glucophage) 500 mg PO 1130,1700 [facility] Last Admin: 02/03/17 18:35 Dose: 500 mg Sitagliptin Phosphate (Januvia) 50 mg PO DAILY [facility] Last Admin: 02/04/17 09:26 Dose: 50 mg Trimethoprim/Sulfamethoxazole (Bactrim Ds Tab) 1 tab PO Q12 [facility] Stop: 02/04/17 21:00 Last Admin: 02/04/17 09:26 Dose: 1 tab - Labs Labs: 01/27/17 13:00 01/27/17 13:00 - Head Exam Head Exam: NORMAL INSPECTION - Eye Exam Eye Exam: Normal appearance - ENT Exam ENT Exam: Mucous Membranes Moist - Cardiovascular Exam Cardiovascular Exam: REGULAR RHYTHM - GI/Abdominal Exam GI & Abdominal Exam: Normal Bowel Sounds - Neurological Exam Neurological Exam: CN II-XII Intact - Psychiatric Exam Psychiatric exam: Normal Mood Assessment and Plan (1) CVA (cerebral vascular accident) Status: Acute (2) Diabetes mellitus type 2 in nonobese Status: Acute (3) Hypertension Status: Acute (4) Ataxia Status: Acute (5) Gait disturbance, post-stroke Status: Acute (6) Hyperlipidemia Status: Acute (7) Hypothyroidism Status: Acute - Assessment and Plan (Free Text) Plan: Cont meds Cot tx Cont PT
--- NOTE | 2017-02-04 10:48 | CP.PCM.PN ---
Subjective - Date & Time of Evaluation Date of Evaluation: 02/04/17 Time of Evaluation: 10:48 - Subjective Subjective: Patient remains stable. Objective - Vital Signs/Intake and Output Vital Signs (last 24 hours): Temp Pulse Resp BP Pulse Ox 97.7 F 66 20 110/56 L 97 02/03/17 20:31 02/04/17 09:26 02/03/17 20:31 02/04/17 09:26 02/03/17 20:31 - Medications Medications: Current Medications Acetaminophen (Tylenol 325mg Tab) 650 mg PO Q4 PRN PRN Reason: FOR PAIN SCALE 4-10 Aspirin (Aspirin Chewable) 81 mg PO DAILY [facility] Last Admin: 02/04/17 09:26 Dose: 81 mg Atorvastatin Calcium (Lipitor) 10 mg PO HS [facility] Last Admin: 02/03/17 21:02 Dose: 10 mg Clopidogrel Bisulfate (Plavix) 75 mg PO DAILY [facility] Last Admin: 02/04/17 09:27 Dose: 75 mg Clotrimazole (Lotrimin 1% Cream) 1 applic TOP BID [facility] Last Admin: 02/04/17 09:26 Dose: 1 applic Clotrimazole (Lotrimin 1% Vaginal) 1 applic VG HS [facility] Last Admin: 02/03/17 21:10 Dose: Not Given Famotidine (Pepcid) 20 mg PO DAILY [facility] Last Admin: 02/04/17 09:27 Dose: 20 mg Home Med (Patient's Own Medication) 1 unit TOP TID PRN PRN Reason: Itching / Pruritus Last Admin: 02/02/17 07:34 Dose: 1 unit Gentamicin Sulfate/Sodium Chloride (Gentamicin 80mg/50ml Ns) 80 mg in 50 mls @ 50 mls/hr IVPB Q8 [facility] Last Admin: 02/04/17 06:34 Dose: 50 mls/hr Levothyroxine Sodium (Synthroid) 25 mcg PO DAILY@0630 [facility] Last Admin: 02/04/17 06:34 Dose: 25 mcg Losartan Potassium (Cozaar) 100 mg PO DAILY [facility] Last Admin: 02/04/17 09:26 Dose: Not Given Metformin HCl (Glucophage) 500 mg PO 1130,1700 [facility] Last Admin: 02/03/17 18:35 Dose: 500 mg Sitagliptin Phosphate (Januvia) 50 mg PO DAILY [facility] Last Admin: 02/04/17 09:26 Dose: 50 mg Trimethoprim/Sulfamethoxazole (Bactrim Ds Tab) 1 tab PO Q12 [facility] Stop: 02/04/17 21:00 Last Admin: 02/04/17 09:26 Dose: 1 tab - Labs Labs: 01/27/17 13:00 01/27/17 13:00 Assessment and Plan (1) CVA (cerebral vascular accident) Status: Acute (2) Diabetes mellitus type 2 in nonobese Status: Acute (3) Hypertension Status: Acute (4) Ataxia Status: Acute (5) Gait disturbance, post-stroke Status: Acute (6) Hyperlipidemia Status: Acute (7) Hypothyroidism Status: Acute
--- NOTE | 2017-02-04 15:11 | CP.PCM.PN ---
Subjective - Date & Time of Evaluation Date of Evaluation: 02/03/17 Time of Evaluation: 11:00 - Subjective Subjective: No acute complaints at present Objective - Vital Signs/Intake and Output Vital Signs (last 24 hours): Temp Pulse Resp BP Pulse Ox 97.6 F 66 19 110/56 L 96 02/04/17 10:00 02/04/17 10:00 02/04/17 10:00 02/04/17 10:00 02/04/17 10:00 - Medications Medications: Current Medications Acetaminophen (Tylenol 325mg Tab) 650 mg PO Q4 PRN PRN Reason: FOR PAIN SCALE 4-10 Aspirin (Aspirin Chewable) 81 mg PO DAILY [facility] Last Admin: 02/04/17 09:26 Dose: 81 mg Atorvastatin Calcium (Lipitor) 10 mg PO HS [facility] Last Admin: 02/03/17 21:02 Dose: 10 mg Clopidogrel Bisulfate (Plavix) 75 mg PO DAILY [facility] Last Admin: 02/04/17 09:27 Dose: 75 mg Clotrimazole (Lotrimin 1% Cream) 1 applic TOP BID [facility] Last Admin: 02/04/17 09:26 Dose: 1 applic Clotrimazole (Lotrimin 1% Vaginal) 1 applic VG HS [facility] Last Admin: 02/03/17 21:10 Dose: Not Given Famotidine (Pepcid) 20 mg PO DAILY [facility] Last Admin: 02/04/17 09:27 Dose: 20 mg Home Med (Patient's Own Medication) 1 unit TOP TID PRN PRN Reason: Itching / Pruritus Last Admin: 02/02/17 07:34 Dose: 1 unit Levothyroxine Sodium (Synthroid) 25 mcg PO DAILY@0630 [facility] Last Admin: 02/04/17 06:34 Dose: 25 mcg Losartan Potassium (Cozaar) 100 mg PO DAILY [facility] Last Admin: 02/04/17 09:26 Dose: Not Given Metformin HCl (Glucophage) 500 mg PO 1130,1700 [facility] Last Admin: 02/04/17 12:49 Dose: 500 mg Sitagliptin Phosphate (Januvia) 50 mg PO DAILY [facility] Last Admin: 02/04/17 09:26 Dose: 50 mg Trimethoprim/Sulfamethoxazole (Bactrim Ds Tab) 1 tab PO Q12 [facility] Stop: 02/04/17 21:00 Last Admin: 02/04/17 09:26 Dose: 1 tab - Labs Labs: 01/27/17 13:00 01/27/17 13:00 - Head Exam Head Exam: ATRAUMATIC, NORMAL INSPECTION, NORMOCEPHALIC - Eye Exam Eye Exam: EOMI, Normal appearance Pupil Exam: NORMAL ACCOMODATION - ENT Exam ENT Exam: Mucous Membranes Moist - Neck Exam Neck Exam: Normal Inspection - Respiratory Exam Respiratory Exam: NORMAL BREATHING PATTERN - Cardiovascular Exam Cardiovascular Exam: REGULAR RHYTHM - GI/Abdominal Exam GI & Abdominal Exam: Normal Bowel Sounds - Rectal Exam Rectal Exam: NORMAL INSPECTION - Exam External exam: NORMAL EXTERNAL EXAM - Back Exam Back Exam: NORMAL INSPECTION - Neurological Exam Neurological Exam: Alert, Awake Additional comments: weakness generalized - Psychiatric Exam Psychiatric exam: Normal Affect, Normal Mood - Skin Skin Exam: Dry, Normal Color Assessment and Plan (1) Diabetes mellitus type 2 in nonobese Status: Acute (2) Gait disturbance, post-stroke Assessment & Plan: plan to continue with physical, occupational, rec therapy covering for Dr Gonzalez Status: Acute (3) Hyperlipidemia Status: Acute (4) Hypertension Status: Acute (5) Hypothyroidism Status: Acute (6) Infection due to ESBL-producing Escherichia coli Status: Acute (7) Urinary tract infection Status: Acute (8) Ataxia Status: Acute
[2017-02-05] MEDS: Levothyroxine 25 MCG TAB PO SCH (06:17)
[2017-02-06] MEDS: Levothyroxine 25 MCG TAB PO SCH (05:54)
--- NOTE | 2017-02-06 13:19 | PSY.TMCNF ---
Nursing - Vital Signs Vital Signs (Last 8 hours): Vital Signs 02/06/17 02/06/17 02/06/17 09:00 09:13 10:00 Temperature 96.9 F L 96.9 F L Pulse Rate 84 84 84 Respiratory 21 21 Rate Blood Pressure 117/69 117/69 117/69 O2 Sat by Pulse 100 Oximetry Pain: 0 - Precautions: Precautions: Fall Prevention - Medications/Other Issues Comment: Safety - Consults Comment: Dr. Gonzalez - Toileting Toileting: Minimal Assistance - Bladder Management Bladder Pattern: Normal Voiding Method: Toilet - Bowel Management Bowel Pattern: Normal Bowel Management: Minimal Assistance - Transfers Transfers: Minimal Assistance - ADL's ADL's: Minimal Assistance - Pain Management Comments: Denies pain - Patient/Family Teaching Comments: safety - Goals/Time Frame Comments: per IPOC Physical Therapy - Bed Mobility Bed Mobility: Supervision, Verbal Cues - Transfers Wheelchair to Mat: Supervision, Verbal Cues, Contact Guard, Minimal Assistance Sit to Stand: Supervision, Verbal Cues, Contact Guard, Minimal Assistance Comment: RW - Ambulation Distance (ft.): 200 Assistive Devices: Rolling Walker Orthoses: 2# cuff weight, L side of RW for weighted feedback Comment: -patient with 200 feet with 2# L sided weighted walker. -CG with short periods of CG and instances of min A due to impaired trunk control and impaired fluidity with gait. -VCs to try and maintain static speed. -improved endurance noted with increased distance - Stair Negotiation Stairs: Level of Assistance: Minimal Assistance Number of Stairs: 4 Stairs: Assistive Devices: Left Handrail, Right Handrail Comment: 4 6inch steps with step to pattern with B rails with min A - Standing Balance Static Stand: Contact Guard Assist Dynamic Stand: Minimal Assistance, Moderate Assistance - Pain Comment: Pt with intermittent complaints of muscle cramping at neck - Insight/Carryover Insight/Carryover: Good - Patient/Family Education Comment: -safety, therapy schedule, therapy goals, midline orientation, pain management, use of call reyes, wheelchair mobility, mobility with walker, use of visual feedback, postural control, energy conservation - Assessment/Plan Assessment: Ms. Kessler continues to make slow steady progress towards goals. Patient continues to require mirror feedback, weighted/tactile feedback and cues to improve safety with and quality of motor patterns during functional mobility. Pt continues with retro-pulsion upon standing up and requires intermittent assistance from CS to min A fore safety with all mobility. Pt continues to lack balance reactions in standing requiring external assistance to maintain balance. PT continues to recommend skilled therapy services to maximize safety and independence with all mobility s/p CVA. Due to lack of support at home, PT recommends discharge to [facility] as this would enable patient to continue progressing towards her goals and prior level of functioning to maximize safety and reduce burden of care prior to community discharge. - Goals Timeframe: 7 days Goals: ambulate 200 feet with RW with CG without weighted walker. CS with RW. I with rolling. mod I with supine to/from sit - Provider Therapist: Angy Ware, PT, DPT License Number: [id number] Occupational Therapy - Arousal/Attention/Orientation Patient Orientation: Person, Place, Time, Appropriate to Age, Appropriate to Situation - ADL/IADL Self Feeding: Modified Independent Grooming: Modified Independent Bathing-Upper Extremity: Supervision, Verbal Cues, Set-up Help Bathing-Lower Extremity: Verbal Cues, Set-up Help, Minimal Assistance Dressing-Upper Extremity: Supervision, Verbal Cues, Set-up Help Dressing-Lower Extremity: Verbal Cues, Set-up Help, Contact Guard Comment: grooming-from seated position - Sitting Balance Static Sitting: Independent with upper extremity support Dynamic Sitting: Reaches out of base of support, Requires supervision - Transfers Wheelchair to Bed Transfers: Supervision, Verbal Cues, Set-up Help Toilet Transfers: Verbal Cues, Set-up Help, Minimal Assistance Tub Transfers: Verbal Cues, Set-up Help, Minimal Assistance - Wheelchair Management Level of Assistance: Verbal Cues, Set-up Help Distance (ft.): 150 - Upper Extremity Status Right Upper Extremity Comment: ROM WFL, MMT Grossly 4/5 Left Upper Extremity Comment: ROM WFL, MMT Grossly 4/5. Impaired gross and fine motor coordination - Pain Comment: Pt with intermittent complaints of muscle cramping at neck - Insight/Carryover Insight/Carryover: Good - Patient/Family Education Comment: -safety, therapy schedule, therapy goals, midline orientation, pain management, use of call reyes, wheelchair mobility, mobility with walker, use of visual feedback, postural control, energy conservation - Assessment/Plan Assessment: Ms. Kessler continues to make slow steady progress towards goals. Patient continues to require mirror feedback, weighted/tactile feedback and cues to improve safety with and quality of motor patterns during functional mobility. Pt continues with retro-pulsion upon standing up and requires intermittent assistance from CS to min A fore safety with all mobility. Pt continues to lack balance reactions in standing requiring external assistance to maintain balance. PT continues to recommend skilled therapy services to maximize safety and independence with all mobility s/p CVA. Due to lack of support at home, PT recommends discharge to [facility] as this would enable patient to continue progressing towards her goals and prior level of functioning to maximize safety and reduce burden of care prior to community discharge. - Goals Timeframe: 7 days Goals: ambulate 200 feet with RW with CG without weighted walker. CS with RW. I with rolling. mod I with supine to/from sit - Provider Therapist: Cordelia Hood License Number: [id number] Speech Therapy - Plan Assessment: Ms. Kessler continues to make slow steady progress towards goals. Patient continues to require mirror feedback, weighted/tactile feedback and cues to improve safety with and quality of motor patterns during functional mobility. Pt continues with retro-pulsion upon standing up and requires intermittent assistance from CS to min A fore safety with all mobility. Pt continues to lack balance reactions in standing requiring external assistance to maintain balance. PT continues to recommend skilled therapy services to maximize safety and independence with all mobility s/p CVA. Due to lack of support at home, PT recommends discharge to [facility] as this would enable patient to continue progressing towards her goals and prior level of functioning to maximize safety and reduce burden of care prior to community discharge. Recreational Therapy - Participation Participation: Participates in Individual and/or Group Sessions - Attendance Attendance: 5-6 times per week - Activities Leisure Activities: Cards and Games - Socialization Level of Socialization: Initiates/interacts freely with care givers and peer - Diversional Time Diversional Time: reading, word searches - Assessment Assessment/Plan: Ms. Kessler continues to make slow steady progress towards goals. Patient continues to require mirror feedback, weighted/tactile feedback and cues to improve safety with and quality of motor patterns during functional mobility. Pt continues with retro-pulsion upon standing up and requires intermittent assistance from CS to min A fore safety with all mobility. Pt continues to lack balance reactions in standing requiring external assistance to maintain balance. PT continues to recommend skilled therapy services to maximize safety and independence with all mobility s/p CVA. Due to lack of support at home, PT recommends discharge to [facility] as this would enable patient to continue progressing towards her goals and prior level of functioning to maximize safety and reduce burden of care prior to community discharge. - Provider Therapist: Natalie Spivey, DIRECTOR OF EXTENSION WORK #[id number] Nutrition - Current Diet Current Diet/ Supplement/ Feedings: Moderate consistent CHO heart healthy - Appetite Percent Meal Consumed: 50-74% - Comments Comments: safety - Assessment/Goals/Time Frame Assessment/Goals/Time Frame: Safety - Provider Provider: Mary Allen RD Case Management - Psychosocial Assessment Support Systems: Marco Kessler (sam)- [phone], Psychological Interventions/Needs: Patient is alert and oriented x3 and able to verbalize needs. Discharge Concerns: Patient demonstrates impairments in midline control and motor control to the L side. Patient also with retropulsion during ambulation. Patient/Family Meeting: CM met with patient and rehab team Intervention/Goal/Outcome:: 1. Plan: [facility]- CM to provide list to patient as patient with limited support during the day. 2. Tentative discharge date: 2016 - Discharge Plan Discharge Plan: Subacute care - Provider Provider: MARCELO Lynn, [employer] License Number: [id number] Rehabilitation Plan - Treatment Plan Treatment Plan: Physical Therapy, Occupational Therapy, Dietary, Patient/Family Education - Discharge Plan Discharge to: Subacute
--- NOTE | 2017-02-06 17:06 | CP.PCM.PN ---
Subjective - Date & Time of Evaluation Date of Evaluation: 02/06/17 Time of Evaluation: 17:05 - Subjective Subjective: Patient seen in room denies pain I went over in great detail as to why she is not going to be able to d/c home and need [facility] she seemed to understand making good gains, but will not be safe for d/c unless has 24 hour supervision Objective - Vital Signs/Intake and Output Vital Signs (last 24 hours): Temp Pulse Resp BP Pulse Ox 96.9 F L 84 21 117/69 100 02/06/17 10:00 02/06/17 10:00 02/06/17 10:00 02/06/17 10:00 02/06/17 10:00 - Medications Medications: Current Medications Acetaminophen (Tylenol 325mg Tab) 650 mg PO Q4 PRN PRN Reason: FOR PAIN SCALE 4-10 Aspirin (Aspirin Chewable) 81 mg PO DAILY [facility] Last Admin: 02/06/17 09:12 Dose: 81 mg Atorvastatin Calcium (Lipitor) 10 mg PO HS [facility] Last Admin: 02/05/17 22:15 Dose: 10 mg Clopidogrel Bisulfate (Plavix) 75 mg PO DAILY [facility] Last Admin: 02/06/17 09:14 Dose: 75 mg Clotrimazole (Lotrimin 1% Cream) 1 applic TOP BID [facility] Last Admin: 02/06/17 09:13 Dose: 1 applic Clotrimazole (Lotrimin 1% Vaginal) 1 applic VG HS [facility] Last Admin: 02/05/17 22:16 Dose: Not Given Cyclobenzaprine HCl (Flexeril) 5 mg PO Q8 PRN PRN Reason: Muscle spasm Diazepam (Valium) 5 mg PO 1700 [facility] Famotidine (Pepcid) 20 mg PO DAILY [facility] Last Admin: 02/06/17 09:14 Dose: 20 mg Home Med (Patient's Own Medication) 1 unit TOP TID PRN PRN Reason: Itching / Pruritus Last Admin: 02/02/17 07:34 Dose: 1 unit Levothyroxine Sodium (Synthroid) 25 mcg PO DAILY@0630 [facility] Last Admin: 02/06/17 05:54 Dose: 25 mcg Losartan Potassium (Cozaar) 100 mg PO DAILY [facility] Last Admin: 02/06/17 09:13 Dose: Not Given Metformin HCl (Glucophage) 500 mg PO 1130,1700 [facility] Last Admin: 02/06/17 13:05 Dose: 500 mg Sitagliptin Phosphate (Januvia) 50 mg PO DAILY [facility] Last Admin: 02/06/17 09:14 Dose: 50 mg - Labs Labs: 01/27/17 13:00 01/27/17 13:00
[2017-02-06 20:10] VITALS: RESP 20
[2017-02-07] MEDS: Levothyroxine 25 MCG TAB PO SCH (07:03)
--- NOTE | 2017-02-07 19:13 | CP.PCM.PN ---
Subjective - Date & Time of Evaluation Date of Evaluation: 02/07/17 Time of Evaluation: 19:12 - Subjective Subjective: Patient seen in room with friend present doing ok ambulated in therapies, but had impaired recall of pattern set for d/c to [facility] 02/09/17, but has not decided on which facility at this point I did mention that I would be happy to see her if she goes to [place] continue current care Objective - Vital Signs/Intake and Output Vital Signs (last 24 hours): Temp Pulse Resp BP Pulse Ox 97.6 F 78 20 113/78 96 02/07/17 09:54 02/07/17 09:54 02/07/17 09:54 02/07/17 09:54 02/07/17 09:54 - Medications Medications: Current Medications Acetaminophen (Tylenol 325mg Tab) 650 mg PO Q4 PRN PRN Reason: FOR PAIN SCALE 4-10 Aspirin (Aspirin Chewable) 81 mg PO DAILY [facility] Last Admin: 02/07/17 08:55 Dose: 81 mg Atorvastatin Calcium (Lipitor) 10 mg PO [facility] Last Admin: 02/06/17 21:02 Dose: 10 mg Clopidogrel Bisulfate (Plavix) 75 mg PO DAILY [facility] Last Admin: 02/07/17 08:56 Dose: 75 mg Clotrimazole (Lotrimin 1% Cream) 1 applic TOP BID [facility] Last Admin: 02/07/17 17:00 Dose: 1 applic Clotrimazole (Lotrimin 1% Vaginal) 1 applic VG HS [facility] Last Admin: 02/06/17 21:03 Dose: Not Given Cyclobenzaprine HCl (Flexeril) 5 mg PO Q8 PRN PRN Reason: Muscle spasm Last Admin: 02/06/17 20:46 Dose: 5 mg Famotidine (Pepcid) 20 mg PO DAILY [facility] Last Admin: 02/07/17 08:55 Dose: 20 mg Home Med (Patient's Own Medication) 1 unit TOP TID PRN PRN Reason: Itching / Pruritus Last Admin: 02/02/17 07:34 Dose: 1 unit Levothyroxine Sodium (Synthroid) 25 mcg PO DAILY@0630 [facility] Last Admin: 02/07/17 07:03 Dose: 25 mcg Losartan Potassium (Cozaar) 100 mg PO DAILY [facility] Last Admin: 02/07/17 08:55 Dose: Not Given Metformin HCl (Glucophage) 500 mg PO 1130,1700 [facility] Last Admin: 02/07/17 16:59 Dose: 500 mg Sitagliptin Phosphate (Januvia) 50 mg PO DAILY [facility] Last Admin: 02/07/17 08:57 Dose: 50 mg - Labs Labs: 01/27/17 13:00 01/27/17 13:00
[2017-02-08] MEDS: Levothyroxine 25 MCG TAB PO SCH (07:11)
[2017-02-08 20:18] VITALS: TEMP 87.6; O2SAT 98
[2017-02-09] MEDS: Levothyroxine 25 MCG TAB PO SCH (07:04)
[2017-02-09 09:07] VITALS: BP 111/71; PULSE 67
--- NOTE | 2017-02-09 09:53 | CP.PCM.PN ---
Subjective - Date & Time of Evaluation Date of Evaluation: 02/05/17 Time of Evaluation: 09:30 - Subjective Subjective: Still with a lot of problems with balance. Walks with walker but with assistance Has no chest pain or SOB Has some pain on the right side of the neck mostly trapezius and sternocleidomastoid muscles. Objective - Vital Signs/Intake and Output Vital Signs (last 24 hours): Temp Pulse Resp BP Pulse Ox 87.6 F L 67 20 111/71 98 02/08/17 20:17 02/09/17 09:06 02/08/17 20:17 02/09/17 09:06 02/08/17 20:17 - Medications Medications: Current Medications Acetaminophen (Tylenol 325mg Tab) 650 mg PO Q4 PRN PRN Reason: FOR PAIN SCALE 4-10 Aspirin (Aspirin Chewable) 81 mg PO DAILY [facility] Last Admin: 02/09/17 09:06 Dose: 81 mg Atorvastatin Calcium (Lipitor) 10 mg PO HS [facility] Last Admin: 02/08/17 21:27 Dose: 10 mg Clopidogrel Bisulfate (Plavix) 75 mg PO DAILY [facility] Last Admin: 02/09/17 09:05 Dose: 75 mg Clotrimazole (Lotrimin 1% Cream) 1 applic TOP BID [facility] Last Admin: 02/09/17 09:05 Dose: 1 applic Clotrimazole (Lotrimin 1% Vaginal) 1 applic VG HS [facility] Last Admin: 02/08/17 21:28 Dose: Not Given Cyclobenzaprine HCl (Flexeril) 5 mg PO Q8 PRN PRN Reason: Muscle spasm Last Admin: 02/08/17 20:44 Dose: 5 mg Famotidine (Pepcid) 20 mg PO DAILY [facility] Last Admin: 02/09/17 09:05 Dose: 20 mg Home Med (Patient's Own Medication) 1 unit TOP TID PRN PRN Reason: Itching / Pruritus Last Admin: 02/02/17 07:34 Dose: 1 unit Levothyroxine Sodium (Synthroid) 25 mcg PO DAILY@0630 [facility] Last Admin: 02/09/17 07:04 Dose: 25 mcg Losartan Potassium (Cozaar) 100 mg PO DAILY [facility] Last Admin: 02/09/17 09:06 Dose: 100 mg Metformin HCl (Glucophage) 500 mg PO 1130,1700 [facility] Last Admin: 02/08/17 17:00 Dose: 500 mg Sitagliptin Phosphate (Januvia) 50 mg PO DAILY [facility] Last Admin: 02/09/17 09:06 Dose: 50 mg - Labs Labs: 01/27/17 13:00 01/27/17 13:00 - Head Exam Head Exam: NORMAL INSPECTION - Eye Exam Eye Exam: Normal appearance - ENT Exam ENT Exam: Mucous Membranes Moist - Respiratory Exam Respiratory Exam: Clear to Ausculation Bilateral - Cardiovascular Exam Cardiovascular Exam: REGULAR RHYTHM - GI/Abdominal Exam GI & Abdominal Exam: Normal Bowel Sounds - Neurological Exam Neurological Exam: Awake, Oriented x3 Assessment and Plan (1) CVA (cerebral vascular accident) Status: Acute (2) Diabetes mellitus type 2 in nonobese Status: Acute (3) Hypertension Status: Acute (4) Ataxia Status: Acute (5) Gait disturbance, post-stroke Status: Acute (6) Hyperlipidemia Status: Acute (7) Hypothyroidism Status: Acute - Assessment and Plan (Free Text) Plan: Cont meds Cont tx Xont PT voltaren gel to area of tenderness cont all meds.
--- NOTE | 2017-02-09 09:55 | CP.PCM.PN ---
Subjective - Date & Time of Evaluation Date of Evaluation: 02/06/17 Time of Evaluation: 09:00 - Subjective Subjective: Patient is stable Has no chest pain or SOB Still with poor balance despite use of walker. Objective - Vital Signs/Intake and Output Vital Signs (last 24 hours): Temp Pulse Resp BP Pulse Ox 87.6 F L 67 20 111/71 98 02/08/17 20:17 02/09/17 09:06 02/08/17 20:17 02/09/17 09:06 02/08/17 20:17 - Medications Medications: Current Medications Acetaminophen (Tylenol 325mg Tab) 650 mg PO Q4 PRN PRN Reason: FOR PAIN SCALE 4-10 Aspirin (Aspirin Chewable) 81 mg PO DAILY [facility] Last Admin: 02/09/17 09:06 Dose: 81 mg Atorvastatin Calcium (Lipitor) 10 mg PO HS [facility] Last Admin: 02/08/17 21:27 Dose: 10 mg Clopidogrel Bisulfate (Plavix) 75 mg PO DAILY [facility] Last Admin: 02/09/17 09:05 Dose: 75 mg Clotrimazole (Lotrimin 1% Cream) 1 applic TOP BID [facility] Last Admin: 02/09/17 09:05 Dose: 1 applic Clotrimazole (Lotrimin 1% Vaginal) 1 applic VG HS [facility] Last Admin: 02/08/17 21:28 Dose: Not Given Cyclobenzaprine HCl (Flexeril) 5 mg PO Q8 PRN PRN Reason: Muscle spasm Last Admin: 02/08/17 20:44 Dose: 5 mg Famotidine (Pepcid) 20 mg PO DAILY [facility] Last Admin: 02/09/17 09:05 Dose: 20 mg Home Med (Patient's Own Medication) 1 unit TOP TID PRN PRN Reason: Itching / Pruritus Last Admin: 02/02/17 07:34 Dose: 1 unit Levothyroxine Sodium (Synthroid) 25 mcg PO DAILY@0630 [facility] Last Admin: 02/09/17 07:04 Dose: 25 mcg Losartan Potassium (Cozaar) 100 mg PO DAILY [facility] Last Admin: 02/09/17 09:06 Dose: 100 mg Metformin HCl (Glucophage) 500 mg PO 1130,1700 [facility] Last Admin: 02/08/17 17:00 Dose: 500 mg Sitagliptin Phosphate (Januvia) 50 mg PO DAILY [facility] Last Admin: 02/09/17 09:06 Dose: 50 mg - Labs Labs: 01/27/17 13:00 01/27/17 13:00 Assessment and Plan (1) CVA (cerebral vascular accident) Status: Acute (2) Diabetes mellitus type 2 in nonobese Status: Acute (3) Hypertension Status: Acute (4) Ataxia Status: Acute (5) Gait disturbance, post-stroke Status: Acute (6) Hyperlipidemia Status: Acute (7) Hypothyroidism Status: Acute
--- NOTE | 2017-02-09 09:56 | CP.PCM.PN ---
Subjective - Date & Time of Evaluation Date of Evaluation: 02/07/17 Time of Evaluation: 10:00 - Subjective Subjective: Patient is doing well Has no chest pain or SOB. Objective - Vital Signs/Intake and Output Vital Signs (last 24 hours): Temp Pulse Resp BP Pulse Ox 87.6 F L 67 20 111/71 98 02/08/17 20:17 02/09/17 09:06 02/08/17 20:17 02/09/17 09:06 02/08/17 20:17 - Medications Medications: Current Medications Acetaminophen (Tylenol 325mg Tab) 650 mg PO Q4 PRN PRN Reason: FOR PAIN SCALE 4-10 Aspirin (Aspirin Chewable) 81 mg PO DAILY [facility] Last Admin: 02/09/17 09:06 Dose: 81 mg Atorvastatin Calcium (Lipitor) 10 mg PO HS [facility] Last Admin: 02/08/17 21:27 Dose: 10 mg Clopidogrel Bisulfate (Plavix) 75 mg PO DAILY [facility] Last Admin: 02/09/17 09:05 Dose: 75 mg Clotrimazole (Lotrimin 1% Cream) 1 applic TOP BID [facility] Last Admin: 02/09/17 09:05 Dose: 1 applic Clotrimazole (Lotrimin 1% Vaginal) 1 applic VG HS [facility] Last Admin: 02/08/17 21:28 Dose: Not Given Cyclobenzaprine HCl (Flexeril) 5 mg PO Q8 PRN PRN Reason: Muscle spasm Last Admin: 02/08/17 20:44 Dose: 5 mg Famotidine (Pepcid) 20 mg PO DAILY [facility] Last Admin: 02/09/17 09:05 Dose: 20 mg Home Med (Patient's Own Medication) 1 unit TOP TID PRN PRN Reason: Itching / Pruritus Last Admin: 02/02/17 07:34 Dose: 1 unit Levothyroxine Sodium (Synthroid) 25 mcg PO DAILY@0630 [facility] Last Admin: 02/09/17 07:04 Dose: 25 mcg Losartan Potassium (Cozaar) 100 mg PO DAILY [facility] Last Admin: 02/09/17 09:06 Dose: 100 mg Metformin HCl (Glucophage) 500 mg PO 1130,1700 [facility] Last Admin: 02/08/17 17:00 Dose: 500 mg Sitagliptin Phosphate (Januvia) 50 mg PO DAILY [facility] Last Admin: 02/09/17 09:06 Dose: 50 mg - Labs Labs: 01/27/17 13:00 01/27/17 13:00 Assessment and Plan (1) CVA (cerebral vascular accident) Status: Acute (2) Diabetes mellitus type 2 in nonobese Status: Acute (3) Hypertension Status: Acute (4) Ataxia Status: Acute (5) Gait disturbance, post-stroke Status: Acute (6) Hyperlipidemia Status: Acute (7) Hypothyroidism Status: Acute
--- NOTE | 2017-02-09 09:58 | CP.PCM.PN ---
Subjective - Date & Time of Evaluation Date of Evaluation: 02/08/17 Time of Evaluation: 10:00 - Subjective Subjective: Patient remains stable Still with poor balance Discussed with PT and suggested to contnue PT on a subacute level. Objective - Vital Signs/Intake and Output Vital Signs (last 24 hours): Temp Pulse Resp BP Pulse Ox 87.6 F L 67 20 111/71 98 02/08/17 20:17 02/09/17 09:06 02/08/17 20:17 02/09/17 09:06 02/08/17 20:17 - Medications Medications: Current Medications Acetaminophen (Tylenol 325mg Tab) 650 mg PO Q4 PRN PRN Reason: FOR PAIN SCALE 4-10 Aspirin (Aspirin Chewable) 81 mg PO DAILY [facility] Last Admin: 02/09/17 09:06 Dose: 81 mg Atorvastatin Calcium (Lipitor) 10 mg PO HS [facility] Last Admin: 02/08/17 21:27 Dose: 10 mg Clopidogrel Bisulfate (Plavix) 75 mg PO DAILY [facility] Last Admin: 02/09/17 09:05 Dose: 75 mg Clotrimazole (Lotrimin 1% Cream) 1 applic TOP BID [facility] Last Admin: 02/09/17 09:05 Dose: 1 applic Clotrimazole (Lotrimin 1% Vaginal) 1 applic VG HS [facility] Last Admin: 02/08/17 21:28 Dose: Not Given Cyclobenzaprine HCl (Flexeril) 5 mg PO Q8 PRN PRN Reason: Muscle spasm Last Admin: 02/08/17 20:44 Dose: 5 mg Famotidine (Pepcid) 20 mg PO DAILY [facility] Last Admin: 02/09/17 09:05 Dose: 20 mg Home Med (Patient's Own Medication) 1 unit TOP TID PRN PRN Reason: Itching / Pruritus Last Admin: 02/02/17 07:34 Dose: 1 unit Levothyroxine Sodium (Synthroid) 25 mcg PO DAILY@0630 [facility] Last Admin: 02/09/17 07:04 Dose: 25 mcg Losartan Potassium (Cozaar) 100 mg PO DAILY [facility] Last Admin: 02/09/17 09:06 Dose: 100 mg Metformin HCl (Glucophage) 500 mg PO 1130,1700 [facility] Last Admin: 02/08/17 17:00 Dose: 500 mg Sitagliptin Phosphate (Januvia) 50 mg PO DAILY [facility] Last Admin: 02/09/17 09:06 Dose: 50 mg - Labs Labs: 01/27/17 13:00 01/27/17 13:00 - Head Exam Head Exam: NORMAL INSPECTION - Eye Exam Eye Exam: Normal appearance - ENT Exam ENT Exam: Mucous Membranes Moist - Respiratory Exam Respiratory Exam: Clear to Ausculation Bilateral - Cardiovascular Exam Cardiovascular Exam: REGULAR RHYTHM - GI/Abdominal Exam GI & Abdominal Exam: Normal Bowel Sounds - Neurological Exam Neurological Exam: Awake, Oriented x3 Assessment and Plan (1) CVA (cerebral vascular accident) Status: Acute (2) Diabetes mellitus type 2 in nonobese Status: Acute (3) Hypertension Status: Acute (4) Ataxia Status: Acute (5) Gait disturbance, post-stroke Status: Acute (6) Hyperlipidemia Status: Acute (7) Hypothyroidism Status: Acute - Assessment and Plan (Free Text) Plan: con tmeds cont tx cont PT
--- NOTE | 2017-02-09 10:01 | CP.PCM.DIS ---
Provider - Provider Date of Admission: 01/26/17 16:20 Attending physician: Brandyn Blanca MD Consults: 01/26/17 17:02 Case Management Referral Routine Comment: Physician Instructions: Reason For Exam: Reason for Referral: Discharge Planning 01/28/17 23:49 Pharmacist Consult As Ordered Comment: Physician Instructions: Reason For Exam: on ASA and Plavix Diagnosis - Discharge Diagnosis (1) CVA (cerebral vascular accident) Status: Acute (2) Diabetes mellitus type 2 in nonobese Status: Acute (3) Hypertension Status: Acute (4) Ataxia Status: Acute (5) Gait disturbance, post-stroke Status: Acute (6) Hyperlipidemia Status: Acute (7) Hypothyroidism Status: Acute Hospital Course - Lab Results Lab Results: Micro Results 02/03/17 13:05 Urine,Clean Catch Urine Culture - Final No Growth (<1,000 CFU/ML) 01/27/17 06:45 Urine,Clean Catch Urine Culture - Final Escherichia Coli Most Recent Lab Values WBC 7.2 K/uL (4.8-10.8) 01/27/17 13:00 RBC 4.43 Mil/uL (3.80-5.20) 01/27/17 13:00 Hgb 14.0 g/dL (12.0-16.0) 01/27/17 13:00 Hct 41.9 % (34.0-47.0) 01/27/17 13:00 MCV 94.4 fl (81.0-99.0) 01/27/17 13:00 MCH 31.7 pg (27.0-31.0) H 01/27/17 13:00 MCHC 33.5 g/dL (33.0-37.0) 01/27/17 13:00 RDW 13.9 % (11.5-14.5) 01/27/17 13:00 Plt Count 195 K/uL (130-400) 01/27/17 13:00 MPV 8.6 fl (7.2-11.7) 01/27/17 13:00 Neut % (Auto) 55.8 % (50.0-75.0) 01/27/17 13:00 Lymph % (Auto) 32.7 % (20.0-40.0) 01/27/17 13:00 [place] % (Auto) 8.7 % (0.0-10.0) 01/27/17 13:00 Eos % (Auto) 2.0 % (0.0-4.0) 01/27/17 13:00 Baso % (Auto) 0.8 % (0.0-2.0) 01/27/17 13:00 Neut # 4.0 K/uL (1.8-7.0) 01/27/17 13:00 Lymph # 2.4 K/uL (1.0-4.3) 01/27/17 13:00 [place] # 0.6 K/uL (0.0-0.8) 01/27/17 13:00 Eos # 0.1 K/uL (0.0-0.7) 01/27/17 13:00 Baso # 0.1 K/uL (0.0-0.2) 01/27/17 13:00 Sodium 143 mmol/l (132-148) 01/27/17 13:00 Potassium 4.1 MMOL/L (3.6-5.0) 01/27/17 13:00 Chloride 109 mmol/L (98-107) H 01/27/17 13:00 Carbon Dioxide 23 mmol/L (22-30) 01/27/17 13:00 Anion Gap 15 (10-20) 01/27/17 13:00 BUN 15 mg/dl (7-17) 01/27/17 13:00 Creatinine 0.9 mg/dL (0.7-1.2) 01/27/17 13:00 Est GFR ( Amer) > 60 01/27/17 13:00 Est GFR (Non-Af Amer) > 60 01/27/17 13:00 POC Glucose (mg/dL) 86 mg/dL (65-110) 02/04/17 06:37 Random Glucose 117 mg/dL (65-105) H 01/27/17 13:00 Calcium 10.2 mg/dL (8.4-10.2) 01/27/17 13:00 Total Bilirubin 0.4 mg/dl (0.2-1.3) 01/27/17 13:00 AST 22 U/L (14-36) 01/27/17 13:00 ALT 31 U/L (9-52) 01/27/17 13:00 Alkaline Phosphatase 68 U/L (38-126) 01/27/17 13:00 Total Protein 7.2 G/DL (6.3-8.2) 01/27/17 13:00 Albumin 4.2 g/dL (3.5-5.0) 01/27/17 13:00 Globulin 3.0 gm/dL (2.2-3.9) 01/27/17 13:00 Albumin/Globulin Ratio 1.4 (1.0-2.1) 01/27/17 13:00 TSH 3rd Generation 0.04 mIU/ML (0.46-4.68) L 01/27/17 13:00 Urine Color Yellow (YELLOW) 02/03/17 13:05 Urine Clarity Slighty-cloudy (Clear) 02/03/17 13:05 Urine pH 6.0 (5.0-8.0) 02/03/17 13:05 Ur Specific [place] 1.014 (1.003-1.030) 02/03/17 13:05 Urine Protein Negative mg/dL (NEGATIVE) 02/03/17 13:05 Urine Glucose (UA) Neg mg/dL (Normal) 02/03/17 13:05 Urine Ketones Negative mg/dL (NEGATIVE) 02/03/17 13:05 Urine Blood Negative (NEGATIVE) 02/03/17 13:05 Urine Nitrate Negative (NEGATIVE) 02/03/17 13:05 Urine Bilirubin Negative (NEGATIVE) 02/03/17 13:05 Urine Urobilinogen 0.2-1.0 mg/dL (0.2-1.0) 02/03/17 13:05 Ur Leukocyte Esterase Neg Ramin/uL (Negative) 02/03/17 13:05 Urine RBC (Auto) 7 /hpf (0-3) H 02/03/17 13:05 Urine Microscopic WBC 2 /hpf (0-5) 02/03/17 13:05 Ur Squamous Epith Cells 1 /hpf (0-5) 02/03/17 13:05 - Hospital Course Hospital Course: This is a 9 y/o female admitted to rehab after a CVA affecting the cerebellum and nilsa. She presented with very poor balance and gait dysfunction There was no problems with speech swallowing or memory. There was no motor deficit on both upper and lower extremities. Discharge Exam - Head Exam Head Exam: NORMAL INSPECTION Discharge Plan - Follow Up Plan Condition: GOOD Disposition: HOME/ ROUTINE
== END 2017-02-09 14:49 | DRG 57 ==
PROVIDERS: ADMIT Family Medicine; ATTEND Family Medicine
PROC: F08Z1FZ Dressing Techniques Treatment using Assistive, Adaptive, Supportive or Protective Equipment (ICD-10-PCS; principal; 2017-01-26)
PROC: F08Z4FZ Home Management Treatment using Assistive, Adaptive, Supportive or Protective Equipment (ICD-10-PCS; 2017-01-26)
PROC: F07Z9FZ Gait Training/Functional Ambulation Treatment using Assistive, Adaptive, Supportive or Protective Equipment (ICD-10-PCS; 2017-01-26)
PROC: F07L6FZ Therapeutic Exercise Treatment of Musculoskeletal System - Lower Back / Lower Extremity using Assistive, Adaptive, Supportive or Protective Equipment (ICD-10-PCS; 2017-01-26)
DX: I69.393 Ataxia following cerebral infarction (principal); N39.0 Urinary tract infection, site not specified; E11.9 Type 2 diabetes mellitus without complications; B96.20 Unspecified Escherichia coli [E. coli] as the cause of diseases classified elsewhere; I10 Essential (primary) hypertension; E03.9 Hypothyroidism, unspecified; Z88.0 Allergy status to penicillin; Z91.013 Allergy to seafood; I25.10 Atherosclerotic heart disease of native coronary artery without angina pectoris; Z95.5 Presence of coronary angioplasty implant and graft; E78.5 Hyperlipidemia, unspecified; Z87.891 Personal history of nicotine dependence